=== PATIENT | male | born 1985 | race Caucasian/White ===

== ENCOUNTER 2021-06-05 13:19 | Emergency (ER) | payer MEDICAID ==
[~2021-06-05] VITALS: Ht 190.5 cm; Wt 125.0 kg
[2021-06-05 13:23] VITALS: BP 116/60
== END 2021-06-05 14:51 | disposition home or self-care (01) ==
LOC: ED 14:50
DX: R11.2 Nausea with vomiting, unspecified (principal); Z20.822 Contact with and (suspected) exposure to COVID-19; K21.9 Gastro-esophageal reflux disease without esophagitis
CPT/HCPCS: 99283; U0003; U0005